=== PATIENT | female | born 1985 | race Caucasian/White ===

== ENCOUNTER 2018-02-26 17:07 | Emergency (ER) | payer MEDICARE, MEDICAID ==
[~2018-02-26] VITALS: Ht 157.5 cm; Wt 72.6 kg
[2018-02-26 17:44] LABS: ABSOLUTE EOSINOPHILS 0.2 thou/uL (0.0-0.7); ABSOLUTE LYMPHOCYTES 1.9 thou/uL (0.8-5.3); ABSOLUTE MONOCYTES 0.6 thou/uL (0.0-1.2); ABSOLUTE NEUTROPHILS 2.9 thou/uL (1.6-8.1); BASOPHILS 0.7 %; EOSINOPHILS 2.7 %; HEMATOCRIT 39.2 % (37.0-47.0); HEMOGLOBIN 13.1 gm/dL (12.0-15.0); LYMPHOCYTES 34.1 %; MCH 33.6 pg (26.0-34.0); MCHC 33.5 g/dL (28.0-37.0); MCV 100.3 fL (80.0-100.0); MPV 7.5 fl. (7.2-11.1); NUCLEATED RBCS 0 /100WBC; PLATELET COUNT* 281 thou/uL (150-400); POLYS 51.5 %; RBC 3.91 mil/uL (4.20-5.00); RDW-CV 15.3 % (10.5-14.5); WBC 5.7 thou/uL (4.0-11.0)
[2018-02-26 17:54] LABS: APTT 28.5 Seconds (25.0-31.3); INR 1.1; PROTIME 11.1 Seconds (9.20-11.50)
[2018-02-26 17:58] LABS: CALCIUM 8.6 mg/dL (8.5-10.1); CREATININE 0.9 mg/dL (0.6-1.3); POTASSIUM 3.1 mmol/L (3.5-5.1)
[2018-02-26 18:02] LABS: ALBUMIN 3.4 g/dL (3.4-5.0); TOTAL BILIRUBIN 0.4 mg/dL (<0.1-1.0); TOTAL PROTEIN 7.4 g/dL (6.4-8.2)
[2018-02-26 18:31] LABS: URINE BILIRUBIN NEGATIVE (Negative); URINE BLOOD NEGATIVE (Negative); URINE CLARITY CLEAR; URINE COLOR YELLOW; URINE GLUCOSE-RANDOM TRACE (Negative); URINE KETONES NEGATIVE (Negative); URINE LEUKOCYTES-REFLEX NEGATIVE (Negative); URINE NITRITE-REFLEX NEGATIVE (Negative); URINE PROTEIN TRACE (Negative); URINE SPECIFIC GRAVITY >= 1.030 (1.005-1.030)
[2018-02-26 18:46] VITALS: BP 116/81
--- NOTE | 2018-02-27 16:37 | EKG ---
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
== END 2018-02-26 18:44 | disposition home or self-care (01) ==
LOC: M.ERS 17:07
PROVIDERS: Family Medicine
DX: R53.1 Weakness (principal); R42 Dizziness and giddiness; E11.9 Type 2 diabetes mellitus without complications; Z90.49 Acquired absence of other specified parts of digestive tract; Z86.19 Personal history of other infectious and parasitic diseases; Z59.0 Homelessness